=== PATIENT | male | born 1940 | race Caucasian/White ===

== ENCOUNTER 2019-11-01 13:39 | Emergency (ER) | payer MEDICARE ==
[2019-11-01 14:18] LABS: BASOPHILS % (AUTO) 0.4 % (0.0-5.0); HEMATOCRIT 38.2 % (42-54); LYMPHOCYTES % (AUTO) 7.6 % (21.0-51.0); MEAN CORPUSCULAR HEMOGLOBIN 33.7 pg (27.0-33.0); MEAN CORPUSCULAR HGB CONC 33.7 g/dL (32.0-36.0); MONOCYTES % (AUTO) 10.3 % (3.0-13.0); NEUTROPHILS % (AUTO) 81.7 % (40.0-77.0); NUCLEATED RED BLOOD CELLS 0.4 % (0.0-0.19); PLATELET COUNT (AUTO) 58 K/uL (130-400); RED BLOOD CELL COUNT(AUTO) 3.82 MIL/uL (4.50-6.20); RED CELL DISTRIBUTION WIDTH 19.3 % (11.0-15.5); WHITE BLOOD COUNT (AUTO) 5.3 K/uL (4.8-10.8)
[2019-11-01 14:29] LABS: INR 0.98 (0.85-1.15); PARTIAL THROMBOPLASTIN TIME 23.3 SEC (26.3-35.5); PROTHROMBIN TIME 10.3 SEC (9.6-11.6)
[2019-11-01 14:31] LABS: CREATININE 0.9 mg/dL (0.5-1.5); POTASSIUM 3.4 mmol/L (3.5-5.1)
[2019-11-01 14:35] LABS: ALBUMIN 4.1 g/dL (3.5-5.0); BILIRUBIN,DIRECT 0.3 mg/dL (0.0-0.3); TOTAL PROTEIN, SERUM 6.9 g/dL (6.0-8.3)
[2019-11-01 15:06] LABS: PLATELET MORPHOLOGY COMMENT DECREASED
[2019-11-01 15:43] LABS: APPEARANCE,URINE Clear (CLEAR); BILIRUBIN,URINE Small (NEGATIVE); COLOR,URINE Dark Yellow (YELLOW); GLUCOSE, URINE (UA) Negative (NEGATIVE); KETONES,URINE Negative (NEGATIVE); LEUKOCYTE ESTERASE ,URINE Negative (NEGATIVE); NITRATE,URINE Negative (NEGATIVE); OCCULT BLOOD,URINE Trace (NEGATIVE); PH,URINE 7.5 (5.0-8.0); PROTEIN,URINE Trace mg/dL (NEGATIVE)
[2019-11-01 15:51] LABS: AMPHET/METH SCREEN,URINE NEGATIVE (NEGATIVE); BARBITURATE SCREEN, URINE NEGATIVE (NEGATIVE); BENZODIAZEPINES SCREEN,URINE NEGATIVE (NEGATIVE); CANNABINOID SCREEN,URINE NEGATIVE (NEGATIVE); COCAINE SCREEN,URINE NEGATIVE (NEGATIVE); OPIATE SCREEN,URINE NEGATIVE (NEGATIVE); PHENCYCLIDINE SCREEN,URINE NEGATIVE (NEGATIVE)
[2019-11-01 16:06] LABS: WBC,URINE 0-1 /HPF (0-1)
[2019-11-01 16:07] LABS: BACTERIA,URINE Rare /HPF (None Seen); SQUAMOUS EPITHELIAL CELL,UR None Seen /HPF (0-2)
[2019-11-01 16:08] LABS: MUCUS,URINE Rare LPF (None Seen)
== END 2019-11-01 20:28 | disposition home or self-care (01) ==
LOC: EDH 13:39
DX: R41.82 Altered mental status, unspecified (principal); R53.1 Weakness; G89.29 Other chronic pain; M54.5 Low back pain
CPT/HCPCS: 36415; 70450; 71045; 80048; 80076; 80305; 81001; 82140; 82550; 83605; 83690; 84484; 85025; 85610; 85730; 93005; 99285; G0480

== ENCOUNTER 2019-11-30 09:11 | Observation (INO) | payer MEDICARE ==
[~2019-11-30] VITALS: Ht 172.7 cm; Wt 79.4 kg
[2019-11-30 09:38] LABS: BASOPHILS % (AUTO) 0.1 % (0.0-5.0); EOSINOPHILS % (AUTO) 0.1 % (0.0-8.0); HEMATOCRIT 40.4 % (42-54); LYMPHOCYTES % (AUTO) 19.9 % (21.0-51.0); MEAN CORPUSCULAR HEMOGLOBIN 31.9 pg (27.0-33.0); MEAN CORPUSCULAR HGB CONC 33.7 g/dL (32.0-36.0); MEAN CORPUSCULAR VOLUME 94.6 fL (79-99); MONOCYTES % (AUTO) 7.5 % (3.0-13.0); NEUTROPHILS % (AUTO) 71.8 % (40.0-77.0); NUCLEATED RED BLOOD CELLS 1.1 % (0.0-0.19); PLATELET COUNT (AUTO) 148 K/uL (130-400); RED BLOOD CELL COUNT(AUTO) 4.27 MIL/uL (4.50-6.20); RED CELL DISTRIBUTION WIDTH 17.7 % (11.0-15.5); WHITE BLOOD COUNT (AUTO) 8.4 K/uL (4.8-10.8)
[2019-11-30 09:49] LABS: CREATININE 0.8 mg/dL (0.5-1.5); POTASSIUM 3.5 mmol/L (3.5-5.1)
[2019-11-30 09:54] LABS: ALBUMIN 4.1 g/dL (3.5-5.0); BILIRUBIN,TOTAL 1.2 mg/dL (0.2-1.0); INR 0.95 (0.85-1.15); PARTIAL THROMBOPLASTIN TIME 22.4 SEC (26.3-35.5); TOTAL PROTEIN, SERUM 7.2 g/dL (6.0-8.3)
[2019-11-30] MEDS ORDERED: ONDANSETRON HCL 4 MG/2 ML VIAL IV PRN (14:00)
[2019-11-30] MEDS ORDERED: ACETAMINOPHEN 325 MG TAB PO PRN (14:00)
[2019-11-30] MEDS ORDERED: LACTULOSE 20 GM/30 ML UDCUP PO PRN (14:00)
[2019-11-30] MEDS ORDERED: IOHEXOL-350 75 ML VIAL IV ONE (15:30)
[2019-11-30] MEDS ORDERED: ACETAMINOPHEN 325 MG TAB ONE (15:53)
[2019-11-30] MEDS ORDERED: ASPIRIN 325 MG TABLET ONE (15:53)
[2019-11-30] MEDS ORDERED: ATORVASTATIN CALCIUM 40 MG TABLET PO ONE (17:10)
[2019-11-30 18:09] VITALS: BP 142/63
--- NOTE | 2019-11-30 18:30 | NUR ---
DR. JOHANNY SCHREIBER HERE TO SEE PATIENT. PER ER REPORT, DR. DURAN REQUESTED HOSPITALIST TO CALL HIM DIRECTLY REGARDING CONSULT. DR. ORLANDO WAS AWARE OF THIS AND CALLED DR. DURAN, NO ANSWER AT THIS TIME SO DR. ORLANDO LEFT VOICEMAIL.
[2019-11-30 19:30] VITALS: BP 125/88
[2019-11-30] MEDS: FAMOTIDINE 20MG TAB 20 MG TAB PO SCH (20:37)
[2019-11-30] MEDS ORDERED: ATORVASTATIN CALCIUM 40 MG TABLET PO SCH (21:00)
[2019-11-30 23:00] VITALS: BP 143/84
[2019-12-01 04:00] VITALS: BP 135/89
[2019-12-01 04:41] LABS: BASOPHILS % (AUTO) 0.2 % (0.0-5.0); HEMATOCRIT 37.7 % (42-54); LYMPHOCYTES % (AUTO) 26.8 % (21.0-51.0); MEAN CORPUSCULAR HEMOGLOBIN 31.8 pg (27.0-33.0); MEAN CORPUSCULAR HGB CONC 33.7 g/dL (32.0-36.0); MEAN CORPUSCULAR VOLUME 94.5 fL (79-99); MONOCYTES % (AUTO) 7.3 % (3.0-13.0); NEUTROPHILS % (AUTO) 64.9 % (40.0-77.0); NUCLEATED RED BLOOD CELLS 0.7 % (0.0-0.19); PLATELET COUNT (AUTO) 116 K/uL (130-400); RED BLOOD CELL COUNT(AUTO) 3.99 MIL/uL (4.50-6.20); RED CELL DISTRIBUTION WIDTH 17.3 % (11.0-15.5); WHITE BLOOD COUNT (AUTO) 5.9 K/uL (4.8-10.8)
[2019-12-01 05:26] LABS: ALBUMIN 3.4 g/dL (3.5-5.0); BILIRUBIN,TOTAL 1.1 mg/dL (0.2-1.0); CREATININE 0.7 mg/dL (0.5-1.5); POTASSIUM 3.3 mmol/L (3.5-5.1); THYROID STIMULATING HORMONE 2.89 uIU/mL (0.36-3.74); TOTAL PROTEIN, SERUM 6.3 g/dL (6.0-8.3)
[2019-12-01 08:30] VITALS: BP 144/82
[2019-12-01] MEDS ORDERED: ASPIRIN 325MG EC TAB 325 MG TABLET.DR PO SCH (09:00)
[2019-12-01] MEDS ORDERED: ENOXAPARIN SODIUM 30 MG/0.3 ML SQ SCH (09:00)
--- NOTE | 2019-12-01 10:45 | NUR ---
DR. BELL MD HERE TO SEE PATIENT. I WAS PRESENT IN ROOM AT THIS TIME. DR. BELL DID TELL PATIENT THAT HE DID NOT HAVE A STROKE. DR. BELL CONTINUED TO EXPLAIN THAT HE BELIEVES ACUTE HEARING LOSS MAY HAVE BEEN CAUSED BY A VIRAL INFECTION, BUT HE WOULD LEAVE DECISION TO ENT MD TO START PATIENT ON STEROIDS AND/OR ANTIBIOTICS.
[2019-12-01] MEDS: FAMOTIDINE 20MG TAB 20 MG TAB PO SCH (10:47)
[2019-12-01 11:00] VITALS: BP 122/73
--- NOTE | 2019-12-01 12:20 | NUR ---
DR. DURAN CONSULT PENDING CALLED DR. ORLANDO TO INQUIRE IF HE HAS SPOKEN TO DR. DURAN SINCE DR. ORLANDO DID CALL DR. DURAN YESTERDAY. DR. ORLANDO DID TELL ME THAT DR. DURAN DID NOT RETURN HIS PHONECALL AND THAT HE WOULD NOT CALL DR. DURAN AGAIN TODAY BECAUSE HE DOES NOT HAVE PATIENT TODAY. ESCALATED THIS ISSUE TO CHARGE NURSE JUNE BECAUSE CONSULT HAS BEEN PENDING SINCE YESTERDAY.
--- NOTE | 2019-12-01 12:26 | NUR ---
DYSPHAGIA EVAL COMPLETED. -S/S OF ASPIRATION. RECOMMEND REGULAR TEXTURE, THIN LIQUIDS; PILLS WHOLE WITH LIQUIDS. Addendum: 12/01/19 at 1228 by DOMINIC JOHNSON, [facility] Amended: Links added.
[2019-12-01] MEDS ORDERED: POTASSIUM CHLORIDE 10% ELIXIR 20 MEQ/15 ML UDCUP PO PRN (12:30)
[2019-12-01] MEDS ORDERED: LIDOCAINE HCL-MPF 1% 2ML VIAL IV PRN (12:30)
[2019-12-01] MEDS ORDERED: POTASSIUM CHLORIDE 20MEQ/100ML 100 ML IV PRN (12:30)
[2019-12-01] MEDS ORDERED: POTASSIUM CHLORIDE 20 MEQ ERTAB PO PRN (12:30)
--- NOTE | 2019-12-01 13:07 | NUR ---
DCP CM met with pt discussed dc plans. Pt is independent prior to admission, lives at home alone, sister lives close by. Denies any equipments/services. Feels safe to go back home, still drives, sister able to assist with transportation and needs as necessary. Offered possible short term placement if MD recommends, pt declined at this time, prefers to go back home. Dc plan to home once stable. CM to cont to follow up. Addendum: 12/01/19 at 1308 by TYSON WEINSTEIN LVN CM Amended: Links added.
--- NOTE | 2019-12-01 15:00 | NUR ---
PATIENTS FAMILY PATIENTS BROTHER IN LAW, SWETA PIEDRA, AND BROTHER IN LAWS SPOUSE, BAYLEE MULLER HERE TO SEE PATIENT. BAYLEE MULLER TOLD ME SHE A SWETAROSA PIEDRA LIVE IN SAME NEIGHBORHOOD AND THEY WOULD BE AVAILABLE TO PICK PATIENT UP WHEN DISCHARGED AND BE ABLE TO DRIVE PATIENT TO APPOINTMENTS IF NEEDED. PROVIDED CONTACT NUMBERS WHICH I PLACED IN PATIENT CHART.
--- NOTE | 2019-12-01 15:20 | NUR ---
DR. DURAN CALLED DIRECTLY TO HIS CELLPHONE. DID TELL ME HE STILL WANTED TO SPEAK TO DR. ORLANDO DIRECTLY. MD THEN ASKED ME TO PROVIDE HIM WITH DR. ORLANDO'S CONTACT PHONE NUMBER WHICH I DID.
[2019-12-01 16:34] VITALS: BP 126/64
[2019-12-01] MEDS ORDERED: PREDNISONE 20 MG TABLET PO SCH (16:45)
--- NOTE | 2019-12-01 17:30 | NUR ---
DR. JOHANNY SCHREIBER CALLED TO INFORM ME THAT HE SPOKE TO DR. DURAN AND THAT DR. DURAN RECOMMENDED TO DISCHARGE PATIENT TODAY AND FOR PATIENT TO SEE DR. DURAN TOMORROW IN HIS OFFICE, IN A WALK IN BASIS. DR. DURAN ALSO RECOMMENDED TO PRESCRIBED PATIENT PREDNISONE 40MG PO DAILY. DR. ORLANDO TOLD ME HE WOULD ASK Robin MALLOY NP TO PLACE DISCHARGE ORDER AND TO WRITE RX.
--- NOTE | 2019-12-01 17:45 | NUR ---
DR. ZHANG SCHREIBER AND Robin MALLOY NP ROUNDING AT THIS TIME. INFORMED OF DR. DURAN'S RECOMMENDATIONS. DR. HOLCOMB IN AGREEMENT TO DISCHARGE PATIENT WITH RX FOR PREDNISONE AND FOR PATIENT TO F/U WITH DR. DURAN TOMORROW.
--- NOTE | 2019-12-01 17:55 | NUR ---
PATIENTS DAUGHTER SPOKE TO PATIENTS DAUGHTER, ARNIE ARAGON IN REGARDS TO DISCHARGE PLAN FOR TODAY. Enriqueta ARAGON TOLD ME SHE WAS NOT COMFORTABLE WITH HER DAD GOING HOME WITHOUT THE ABILITY TO HEAR. I SPOKE TO Enriqueta ARAGON AND EXPLAINED THAT HER FATHER DOES NOT HAVE COMPLETE HEARING LOSS AND IS STILL ABLE TO HEAR, WE JUST HAVE TO SPEAK UP LOUDLY WITH ADDRESSING HIM. Enriqueta ARAGON WENT ON TO SAY THAT SHE FEELS HER DAD MAY NEED A REHAB. I DID EXPLAIN THAT HER FATHER MAY NOT QUALIFY FOR REHAB HE IS AMBULATING, WALKING, AND TALKING WITH NO DEFICITS. OTHER THAN HEARING DEFICIT IN LEFT EAR, PATIENT IS OVERALL DOING WELL. DOING WELL ENOUGH THAT DOCTORS HAVE CLEARED PATIENT TO GO HOME. I INFORMED PATIENT OF HIS DAUGHTER NOT FEELING COMFORTABLE WITH HIM GOING HOME. PATIENT APPEARED UPSET AND SAID "THAT'S MY DAUGHTER THAT WORRIES TOO MUCH! SHE IS [address]!" PATIENT THEN CALLED Enriqueta ARAGON HIMSELF WITH HIS CELLPHONE AND TOLD HER HE FEELS FINE TO GO HOME, AND HE FEELS HIS HEARING HAS IMPROVED. PATIENT TOLD HER HE FEELS GOOD TO GO HOME.
--- NOTE | 2019-12-01 18:00 | NUR ---
DISCHARGE DISCHARGE TEACHING PROVIDED TO PATIENT REGARDING FOLLOW Addendum: 12/01/19 at 2017 by KARLOS ROSALES RN RN FOLLOW-UP* WITH DR. DURAN. PROVIDED MD OFFICE NUMBER AND ADDRESS TO PATIENT. INFORMED HE WOULD BE BE ABLE TO SEE DR. DURAN A WALK IN BASIS. PROVIDED RX TO PATIENT. INFORMED PATIENT HE WAS TO AVOID DRIVING AND OPERATING HEAVY MACHINERY UNTIL CLEARED BY DOCTOR. PATIENT ASK WHY AND I EXPLAINED FOR SAFETY CONCERNS IN CASE HE IS UNABLE TO HEAR TRAFFIC. PATIENT VERBALIZED UNDERSTANDING. REMOVED 20G IV FROM LEFT AC, CATHETER TIP INTACT. CALLED PATIENTS BROTHER IN LAW, Pollo PIEDRA AND HIS SPOUSE TO EMERGENCY MEDICAL SERVICES COORDINATOR PATIENT. PATIENT DID CALL HIS DAUGHTER Enriqueta ARAGON AND TOLD HER NOT TO WORRY AND HE FELT GOOD TO GO HOME.
== END 2019-12-01 18:35 | disposition home or self-care (01) ==
LOC: EDH 09:11 → EDHIP 13:53 → INTOOBSV 13:53 → 4AH 17:32
PROVIDERS: ADMIT Family Medicine; ATTEND Family Medicine
DX: H91.21 Sudden idiopathic hearing loss, right ear (principal); H91.92 Unspecified hearing loss, left ear; M06.9 Rheumatoid arthritis, unspecified; I10 Essential (primary) hypertension; E78.5 Hyperlipidemia, unspecified; I25.10 Atherosclerotic heart disease of native coronary artery without angina pectoris; Z79.899 Other long term (current) drug therapy; Z88.1 Allergy status to other antibiotic agents
CPT/HCPCS: 36415 ×2; 70450; 70496; 70498; 80053 ×2; 80061; 84443; 85025 ×2; 85610; 85730; 92610; 93005; 93306; 93880; 99284; G0378 ×12; Q9967

== ENCOUNTER → 2020-11-28 | Outpatient (CLI) | payer MEDICARE | END | disposition home or self-care (01) | LOC: OIH 13:26 | PROVIDERS: ATTEND Internal Medicine | DX: M19.042 Primary osteoarthritis, left hand (principal); M19.041 Primary osteoarthritis, right hand; M51.36 Other intervertebral disc degeneration, lumbar region; M85.88 Other specified disorders of bone density and structure, other site | CPT/HCPCS: 72100 ==

== ENCOUNTER 2021-04-29 15:47 | Emergency (ER) | payer MEDICARE ==
[~2021-04-29] VITALS: Ht 167.6 cm; Wt 70.3 kg
[~2021-04-29 15:47] MED LIST: AEC81 PO; CLOP75TA32 PO; DULO60CA64 PO; GABA300C PO; OMEP40CA21 PO; SIMV-46 PO; folic acid PO
[2021-04-29] MEDS ORDERED: MECLIZINE HCL 25 MG TABLET PO SCH (17:30)
[2021-04-29 18:45] VITALS: BP 115/65
[2021-04-29 18:53] LABS: BASOPHILS % (AUTO) 0.4 % (0.0-5.0); EOSINOPHILS % (AUTO) 0.8 % (0.0-8.0); HEMATOCRIT 36.5 % (42-54); LYMPHOCYTES % (AUTO) 25.9 % (21.0-51.0); MEAN CORPUSCULAR HEMOGLOBIN 31.9 pg (27.0-33.0); MEAN CORPUSCULAR HGB CONC 33.2 g/dL (32.0-36.0); MEAN CORPUSCULAR VOLUME 96.3 fL (79-99); MONOCYTES % (AUTO) 10.4 % (3.0-13.0); NEUTROPHILS % (AUTO) 62.1 % (40.0-77.0); PLATELET COUNT (AUTO) 65 K/uL (130-400); RED BLOOD CELL COUNT(AUTO) 3.79 MIL/uL (4.50-6.20); RED CELL DISTRIBUTION WIDTH 17.3 % (11.0-15.5); WHITE BLOOD COUNT (AUTO) 4.9 K/uL (4.8-10.8)
[2021-04-29 18:55] LABS: APPEARANCE,URINE Clear (CLEAR); BILIRUBIN,URINE Negative (NEGATIVE); COLOR,URINE Dark Yellow (YELLOW); GLUCOSE, URINE (UA) Negative (NEGATIVE); KETONES,URINE Trace mg/dL (NEGATIVE); LEUKOCYTE ESTERASE ,URINE Negative (NEGATIVE); NITRATE,URINE Negative (NEGATIVE); OCCULT BLOOD,URINE Negative (NEGATIVE); PH,URINE 5.5 (5.0-8.0); PROTEIN,URINE Negative (NEGATIVE)
[2021-04-29 19:08] VITALS: BP 107/66
[2021-04-29 19:10] LABS: CREATININE 0.8 mg/dL (0.5-1.5); POTASSIUM 3.6 mmol/L (3.5-5.1)
[2021-04-29 19:15] LABS: ALBUMIN 3.5 g/dL (3.5-5.0); BILIRUBIN,TOTAL 0.9 mg/dL (0.2-1.0); TOTAL PROTEIN, SERUM 6.3 g/dL (6.0-8.3)
[2021-04-29] MEDS ORDERED: MECL-160 PO (19:49)
[2021-04-29 19:59] VITALS: BP 124/67
== END 2021-04-29 20:12 | disposition home or self-care (01) ==
LOC: EDH 15:47
DX: R42 Dizziness and giddiness (principal); R53.1 Weakness; E78.5 Hyperlipidemia, unspecified; I10 Essential (primary) hypertension; K21.9 Gastro-esophageal reflux disease without esophagitis; Z88.0 Allergy status to penicillin; Z79.82 Long term (current) use of aspirin; Z88.1 Allergy status to other antibiotic agents; Z79.899 Other long term (current) drug therapy
CPT/HCPCS: 36415; 70450; 71045; 80053; 81003; 84484; 85025

== ENCOUNTER 2021-05-11 11:46 | Emergency (ER) | payer MEDICARE ==
[~2021-05-11] VITALS: Ht 172.7 cm; Wt 77.1 kg
[~2021-05-11 11:46] MED LIST changes: +MECL-160 PO
[2021-05-11 11:48] VITALS: BP 109/70
[2021-05-11] MEDS ORDERED: KETOROLAC 30MG VIAL (30MG/ML) IM SCH (12:34)
[2021-05-11 12:57] LABS: BASOPHILS % (AUTO) 0.3 % (0.0-5.0); EOSINOPHILS % (AUTO) 0.6 % (0.0-8.0); HEMATOCRIT 33.7 % (42-54); LYMPHOCYTES % (AUTO) 14.7 % (21.0-51.0); MEAN CORPUSCULAR HGB CONC 32.9 g/dL (32.0-36.0); MEAN CORPUSCULAR VOLUME 97.1 fL (79-99); MONOCYTES % (AUTO) 8.9 % (3.0-13.0); NEUTROPHILS % (AUTO) 74.8 % (40.0-77.0); NUCLEATED RED BLOOD CELLS 0.7 % (0.0-0.19); PLATELET COUNT (AUTO) 83 K/uL (130-400); RED BLOOD CELL COUNT(AUTO) 3.47 MIL/uL (4.50-6.20); RED CELL DISTRIBUTION WIDTH 17.2 % (11.0-15.5); WHITE BLOOD COUNT (AUTO) 7.1 K/uL (4.8-10.8)
[2021-05-11 13:08] LABS: INR 1.06 (0.85-1.15); PROTHROMBIN TIME 11.5 SEC (9.6-11.6)
[2021-05-11 13:11] LABS: CARBON DIOXIDE 33 mmol/L (21-32); CHLORIDE 103 mmol/L (101-111); CREATININE 0.8 mg/dL (0.5-1.5); GLOMERULAR FILTR. RATE CALC 98 mL/min (>60); GLUCOSE,RANDOM 136 mg/dL (70-105); POTASSIUM 3.1 mmol/L (3.5-5.1); SODIUM SERUM 142 mmol/L (136-145); UREA NITROGEN, BLOOD 14 mg/dL (7-18)
[2021-05-11 13:21] LABS: ALANINE AMINOTRANSFERASE 19 U/L (12-78); ALBUMIN 3.3 g/dL (3.5-5.0); ASPARTATE AMINOTRANSFERASE 22 U/L (10-37); BILIRUBIN,TOTAL 0.8 mg/dL (0.2-1.0); CREATINE KINASE, TOTAL 51 U/L (21-232); MYOGLOBIN 49 ng/mL (10-92); TOTAL PROTEIN, SERUM 5.9 g/dL (6.0-8.3); TROPONIN I < 0.04 ng/mL (0.00-0.06)
[2021-05-11 13:26] LABS: B-TYPE NATRIURETIC PEPTIDE 16 pg/mL (0-100)
[2021-05-11] MEDS ORDERED: NAPR-1023 PO (14:15)
[2021-05-11 14:38] VITALS: BP 124/80
[2021-05-11] MEDS ORDERED: POTASSIUM BICARB/CIT AC 25 MEQ TABLET.EFF PO STA (14:45)
[2021-05-11] MEDS ORDERED: POTASSIUM BICARB/CIT AC 25 MEQ TABLET.EFF ONE (14:54)
== END 2021-05-11 14:59 | disposition home or self-care (01) ==
LOC: EDH 11:46
DX: M94.0 Chondrocostal junction syndrome [Tietze] (principal); R07.1 Chest pain on breathing; I10 Essential (primary) hypertension; E78.5 Hyperlipidemia, unspecified; E66.9 Obesity, unspecified; E03.9 Hypothyroidism, unspecified; Z95.1 Presence of aortocoronary bypass graft; Z88.1 Allergy status to other antibiotic agents; Z79.82 Long term (current) use of aspirin; Z79.899 Other long term (current) drug therapy
CPT/HCPCS: 36415; 71101; 80053; 82550; 83874; 83880; 84484; 85025; 85610; 93005; 96372; 99285; J1885